=== PATIENT | female | born 1995 | race Caucasian/White ===

== ENCOUNTER 2016-09-10 18:18 | Emergency (ER) | payer OTHER ==
[~2016-09-10] VITALS: Ht 160 cm; Wt 61.2 kg
[~2016-09-10 18:18] MED LIST: ALEVE220 M2 PO; DIPHENHYDRAMINE25 M1 ORAL; IBUPROFEN600 MG ORAL; NORCO 5-325 TA1 EACH ORAL; PENICILLIN V P500 MG ORAL; PREDNISONE20 M1 PO
[2016-09-10 18:30] VITALS: BP 127/85
[2016-09-10] MEDS ORDERED: NKM (18:33)
[2016-09-10] MEDS ORDERED: BENADRYL25 MG ORAL (18:35)
[2016-09-10] MEDS ORDERED: KENALOG 0.5% CR15 GM TP (18:35)
[2016-09-10 18:45] VITALS: BP 127/85
--- NOTE | 2016-09-10 22:10 | Emergency Room Report ---
History of Present Illness General Chief Complaint: Skin Rash/Abscess Source: Patient Present Illness HPI The patient is a 21-year-old female presenting with a rash which she noticed 3 days prior after arriving home from [place]. Patient states that it is itchy and denies any pain. The patient has used hydrocortisone and Benadryl which has helped mildly. The patient denies any other symptoms including N, V, F, chills, MELTON, fatigue, cough, SOB Allergies: Coded Allergies: No Known Allergies (Unverified , 02/27/14) Patient History Past Medical History: see triage record Pertinent Family History: none Last Menstrual Period: 09/04/2016 Now: No : 0 Para: 0 Reviewed Nursing Documentation: PMH: Agreed, PSxH: Agreed Nursing Documentation-PMH Past Medical History: No Stated History Review of Systems All Other Systems: negative except mentioned in HPI Physical Exam Vital Signs Date Time Temp Pulse Resp B/P Pulse Ox O2 Delivery O2 Flow Rate FiO2 09/10/16 18:25 98.1 81 16 127/85 99 Room Air Sp02 EP Interpretation: reviewed, normal General Appearance: no apparent distress, alert, GCS 15, non-toxic Head: normocephalic, atraumatic Eyes: bilateral eye PERRL, bilateral eye normal inspection ENT: hearing grossly normal, normal pharynx, no angioedema, normal voice Respiratory: chest non-tender, lungs clear, normal breath sounds, speaking full sentences Musculoskeletal: back normal, gait/station normal, normal range of motion, non- tender Neurologic: alert, oriented x3, responsive, motor strength/tone normal, sensory intact, speech normal Psychiatric: judgement/insight normal, memory normal, mood/affect normal, no suicidal/homicidal ideation Skin: normal turgor, rash - There are circular erythematous lesions of the exposed areas of skin. Nontender. Appears in rows of 3. No burrows. No lesions between web spaces Lymphatic: no adenopathy Medical Decision Making PA Attestation Dr. Fair is my supervising physician. Patient management was discussed with my supervising physician Diagnostic Impression: Primary Impression: Insect bite ER Course The patient is a 21-year-old female presenting with a rash Ddx considered include but not limited to insect bite, contact dermatitis, eczema, cellulitis PE: Vitals WNL. NAD There are circular erythematous lesions of the exposed areas of skin. Nontender. Appears in rows of 3. No burrows. No lesions between web spaces The patient is discharged home with a prescription for triamcinolone and Benadryl. ER precautions are given and the patient will conduct a deep cleaning of clothing and bedroom. Last Vital Signs Date Time Temp Pulse Resp B/P Pulse Ox O2 Delivery O2 Flow Rate FiO2 09/10/16 18:45 98.1 79 16 127/85 99 Room Air Status: improved Disposition: HOME, SELF-CARE Condition: Improved Scripts Diphenhydramine Hcl* (BENADRYL*) 25 Mg Capsule 25 MG ORAL Q6H Y for Itching, #15 CAP Prov: KIRSTIN COON 09/10/16 Triamcinolone Acet (Triamcinolone Acetonide) 15 Gm Cream..g. 1 APPL TP TID, #15 GM Prov: KIRSTIN COON 09/10/16 Referrals: [employer] [facility],REFERRIN (PCP) Patient Instructions: Insect Bite Additional Instructions: I discussed my findings with the patient. All questions and concerns have been answered. Treatment and medication compliance have been addressed. I advised the patient that they need to follow up with PMD in 3-5 days. Return to ED if symptoms worsen, new symptoms arise, or if needed for any reason. Patient verbalized understanding of discharge instructions. KIRSTIN COON Sep 10, 2016 22:10
== END 2016-09-10 19:00 | disposition home or self-care (01) ==
LOC: EMR 18:51
DX: T14.8 Other injury of unspecified body region (principal); W57.XXXA Bitten or stung by nonvenomous insect and other nonvenomous arthropods, initial encounter; Y92.9 Unspecified place or not applicable; Y99.8 Other external cause status
CPT/HCPCS: 99284

== ENCOUNTER → 2017-02-19 | Emergency (ER) | payer MEDICAID, OTHER ==
[~2017-02-19] VITALS: Ht 160 cm; Wt 61.2 kg
[~2017-02-19] MED LIST changes: +BENADRYL25 MG ORAL; +CLOTRIMAZOLE15 GM TOPIC; +HYDROCORTISONE30 G2 TP; +KENALOG 0.5% CR15 GM TP; +NKM
[2017-02-19 15:15] VITALS: BP 114/70
--- NOTE | 2017-02-19 16:21 | Emergency Room Report ---
History of Present Illness General Chief Complaint: Skin Rash/Abscess Source: Patient Present Illness HPI 21-year-old female presents to the emergency department complaining of itchy rash with circular lesions to the bilateral posterior shoulders and upper back x2 days. Patient states that she noticed the rash after being in the sun all day. Patient states that the skin and not areas of production hardener color. Patient denies fevers, chills or swelling. Denies lesions/rashes elsewhere on the body. Denies new medications or body washes or creams. Denies swelling of the lips, tongue , throat or airway. Denies wheezing, or shortness of breath. Denies recent travel, recent illness or ill contacts. denies blisters, oral lesions, or sloughing of the skin. Denies CP, Palpitations, LOC, AMS, dizziness, Changes in Vision, Sensation, paresthesias, or a sudden severe headache. Allergies: Coded Allergies: No Known Allergies (Unverified , 02/27/14) Patient History Past Medical History: see triage record Past Surgical History: none Pertinent Family History: none Last Menstrual Period: 01/24/17 Now: No Immunizations: UTD Reviewed Nursing Documentation: PMH: Agreed, PSxH: Agreed Nursing Documentation-PMH Past Medical History: No Stated History Review of Systems All Other Systems: negative except mentioned in HPI Physical Exam Vital Signs Date Time Temp Pulse Resp B/P Pulse Ox O2 Delivery O2 Flow Rate FiO2 02/19/17 15:15 97.7 80 16 114/70 99 Room Air Sp02 EP Interpretation: reviewed, normal General Appearance: no apparent distress, alert, GCS 15, non-toxic Head: normocephalic, atraumatic Eyes: bilateral eye PERRL, bilateral eye normal inspection ENT: hearing grossly normal, no angioedema, normal voice, other - no swelling of the lips or tongue Neck: full range of motion Respiratory: lungs clear, normal breath sounds, no rhonchi, no wheezing, speaking full sentences Cardiovascular #1: regular rate, rhythm, no edema Musculoskeletal: back normal, gait/station normal, normal range of motion, non- tender Neurologic: alert, oriented x3, responsive, motor strength/tone normal, sensory intact, speech normal Psychiatric: judgement/insight normal, memory normal, mood/affect normal Skin: normal color, warm/dry, well hydrated, rash - erythematous rash to the upper back and bilateral post shoulders with excoriations noted, scant circular hypopigmented plaques noted as well. no crusting, no vessicles, no blisters. Medical Decision Making PA Attestation Dr. Naylor is my supervising Physician whom patient management has been discussed with. Diagnostic Impression: Primary Impression: Rash and other nonspecific skin eruption ER Course 21-year-old female presents to the emergency department complaining of itchy rash with circular lesions to the bilateral posterior shoulders and upper back x2 days. Patient states that she noticed the rash after being in the sun all day. Patient states that the skin and not areas of production hardener color. Patient denies fevers, chills or swelling. Denies lesions/rashes elsewhere on the body. Denies new medications or body washes or creams. Denies swelling of the lips, tongue , throat or airway. Denies wheezing, or shortness of breath. Denies recent travel, recent illness or ill contacts. denies blisters, oral lesions, or sloughing of the skin. Denies CP, Palpitations, LOC, AMS, dizziness, Changes in Vision, Sensation, paresthesias, or a sudden severe headache. Ddx considered but are not limited to cellulitis, scabies, shingles, varicella, dermatitis, urticaria, eczema, tinea Vital signs: are WNL, pt. is afebrile H&PE are most consistent with localized allergic skin reaction, circular hypopigmented lesions suspicious for tinea versicolor. not suspicious for secondary bacterial infection or anaphylaxis ORDERS: none required at this time, the diagnosis is clinical ED INTERVENTIONS: None required at this time. d/w pt. that she will be treated for both localized dermatitis, but also given medication for fungal infection, as hypopigmented plaques are suspicious for that. d/w pt. 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 Return to ED with worsening of symptoms/rash. DISCHARGE: At this time pt. is stable for d/c to home. Will provide printed patient care instructions, and any necessary prescriptions. Care plan and follow up instructions have been discussed with the patient prior to discharge. Last Vital Signs Date Time Temp Pulse Resp B/P Pulse Ox O2 Delivery O2 Flow Rate FiO2 02/19/17 15:15 97.7 80 16 114/70 99 Room Air Disposition: HOME, SELF-CARE Condition: Stable Scripts Diphenhydramine Hcl* (BENADRYL*) 25 Mg Capsule 25 MG ORAL Q6H Y for Itching, #20 CAP Prov: Marika Bean 02/19/17 Hydrocortisone (Hydrocortisone Cream 2.5%) Y Cream.appl 1 APPLIC TP BID, #28.3 GM Prov: Marika Bean 02/19/17 Clotrimazole* (LOTRIMIN*) 15 Gm Cream..g. 1 APPLIC TOPIC TWICE A DAY, #15 GM 1 Refill Prov: Marika Bean 02/19/17 Patient Instructions: Rash Additional Instructions: Take medications as directed. Follow up with a Primary Care Provider in 3-5 days, even if your symptoms have resolved. --Please review list of primary care clinics, if you do not already have a primary care provider Return sooner to ED if new symptoms occur, or current symptoms become worse. - Please note that this Emergency Department Report was dictated using [id number] loader and unloader technology software, occasionally this can lead to erroneous entry secondary to interpretation by the dictation equipment. Marika Bean Feb 19, 2017 16:21
== END | disposition home or self-care (01) ==
LOC: EMR 16:12
DX: R21 Rash and other nonspecific skin eruption (principal)
CPT/HCPCS: 99284

== ENCOUNTER 2020-05-20 16:35 | Emergency (ER) | payer MEDICAID, OTHER ==
[~2020-05-20] VITALS: Ht 160 cm; Wt 61.2 kg
[~2020-05-20 16:35] MED LIST changes: +CYCLOBENZAPRINE10 MG ORAL; +ONDANSETRON ODT4 MG BC
[2020-05-20] MEDS ORDERED: Dicyclomine HCl 10mg/5ml oral soln ORAL ONE (17:00)
--- NOTE | 2020-05-20 17:00 | NUR ---
ED Nurse Note: Pt walked in c/o low abd pain since yesterday. Denies n/v/d/fever. Respirations even and unlabored on room air. Vitals stable as documented. A+Ox4, speaking in complete sentences.
[2020-05-20 17:10] VITALS: BP 121/75
[2020-05-20 17:52] LABS: BASOPHILS % (AUTO) 0.6 % (0.0-2.0); EOSINOPHILS % (AUTO) 2.7 % (0.0-3.0); HEMATOCRIT 35.7 % (37.0-47.0); LYMPHOCYTES % (AUTO) 35.5 % (20.0-45.0); MEAN CORPUSCULAR VOLUME 92 FL (80-99); MONOCYTES % (AUTO) 5.7 % (1.0-10.0); NEUTROPHILS % (AUTO) 55.5 % (45.0-75.0); PLATELET COUNT 159 K/UL (150-450); RED BLOOD COUNT 3.89 M/UL (4.20-5.40); RED CELL DISTRIBUTION WIDTH 11.3 % (11.6-14.8); WHITE BLOOD COUNT 7.5 K/UL (4.8-10.8)
[2020-05-20 17:54] LABS: APPEARANCE,URINE SLIGHTLY CLOUDY; BILIRUBIN, URINE NEGATIVE (NEGATIVE); COLOR,URINE PALE YELLOW; GLUCOSE, URINE (UA) NEGATIVE (NEGATIVE); KETONES,URINE NEGATIVE (NEGATIVE); LEUKOCYTE ESTERASE ,URINE 2+ (NEGATIVE); NITRITE,URINE NEGATIVE (NEGATIVE); PH,URINE 8 (4.5-8.0); PROTEIN,URINE NEGATIVE (NEGATIVE); UROBILINOGEN,URINE NORMAL MG/DL (0.0-1.0)
[2020-05-20 18:04] LABS: ANION GAP 6 mmol/L (5-15); BLOOD UREA NITROGEN 8 mg/dL (7-18); CALCIUM 8.5 MG/DL (8.5-10.1); CARBON DIOXIDE 27 MMOL/L (21-32); CHLORIDE 105 MMOL/L (98-107); CREATININE 0.8 MG/DL (0.55-1.30); POTASSIUM 4.2 MMOL/L (3.5-5.1); SODIUM 138 MMOL/L (136-145)
[2020-05-20 18:09] LABS: ALANINE AMINOTRANSFERASE 18 U/L (12-78); ALBUMIN 3.6 G/DL (3.4-5.0); ALBUMIN/GLOBULIN RATIO 1.1 (1.0-2.7); ALKALINE PHOSPHATASE 34 U/L (46-116); ASPARTATE AMINO TRANSFERASE 17 U/L (15-37); BILIRUBIN,TOTAL 0.3 MG/DL (0.2-1.0)
--- NOTE | 2020-05-20 18:23 | Emergency Room Report ---
History of Present Illness General Chief Complaint: Abdominal Pain Source: Patient (John Barreto) Present Illness HPI 25-year-old female with history of gastritis currently taking Pepcid here complaining of diffuse abdominal cramping x2 days and lower abdominal pressure. Denies any urinary symptoms at this time. Reports feeling flatulent. Denies any constipation diarrhea. Denies any bloody stool. Denies nausea or vomiting. Denies fever and chills, cough or congestion. Denies recent travel or intake of any new food. Denies . Denies tobacco smoke, drug use, alcohol intake. 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 COVID-19 Screening: Negative COVID-19 COVID-19 Testing Source: 3 months ago (John Barreto) Patient History Past Medical History: see triage record Past Surgical History: none Pertinent Family History: none Now: No Immunizations: UTD Reviewed Nursing Documentation: PMH: Agreed; PSxH: Agreed (John Barreto) Nursing Documentation-PMH Past Medical History: No Stated History (John Barreto) Review of Systems All Other Systems: negative except mentioned in HPI (John Barreto) Physical Exam Vital Signs Date Time Temp Pulse Resp B/P (MAP) Pulse Ox O2 Delivery O2 Flow Rate FiO2 05/20/20 16:52 98.2 83 20 114/71 (85) 97 Room Air Sp02 EP Interpretation: reviewed, normal General Appearance: no apparent distress, alert, GCS 15, non-toxic Head: normocephalic, atraumatic Eyes: bilateral eye normal inspection, bilateral eye PERRL ENT: hearing grossly normal, normal pharynx, no angioedema, normal voice Neck: full range of motion, supple/symm/no masses Respiratory: chest non-tender, lungs clear, normal breath sounds, speaking full sentences Cardiovascular #1: regular rate, rhythm, no edema Cardiovascular #2: 2+ carotid (R), 2+ carotid (L), 2+ radial (R), 2+ radial ( L), 2+ dorsalis pedis (R), 2+ dorsalis pedis (L) Gastrointestinal: normal bowel sounds, non tender, soft, no mass, no organomegaly, no peritonitis, no bruit, non-distended, no guarding, no hernia, no pulsatile mass, no rebound Rectal: deferred Genitourinary: no CVA tenderness Musculoskeletal: back normal, normal range of motion, no calf tenderness, gait/station normal, non-tender Neurologic: alert, motor strength/tone normal, oriented x3, sensory intact, responsive, speech normal Psychiatric: judgement/insight normal, memory normal, mood/affect normal, no suicidal/homicidal ideation Skin: no rash Lymphatic: no adenopathy (John Barreto) Medical Decision Making PA Attestation All diagnoses and treatment plans were reviewed and discussed with my supervising physician Dr. Mccormick (John Barreto) Diagnostic Impression: Primary Impression: UTI (urinary tract infection) Additional Impressions: Abdominal pain Constipation Ovarian cyst ER Course 25-year-old female with history of gastritis currently taking Pepcid here complaining of diffuse abdominal cramping x2 days and lower abdominal pressure. Denies any urinary symptoms at this time. Reports feeling flatulent. Denies any constipation diarrhea. Denies any bloody stool. Denies nausea or vomiting. Denies fever and chills, cough or congestion. Denies recent travel or intake of any new food. Denies . Denies tobacco smoke, drug use, alcohol intake. Ddx considered but are not limited to: UTI, pyelonephritis, urinary incontinence, prolapsed bladder, gastritis, H. pylori, gastroenteritis Vital signs: are WNL, pt. is afebrile H&PE are most consistent with: Ddx considered but are not limited to: UTI, pyel onephritis, urinary incontinence, prolapsed bladder Vital signs: are WNL, pt. is afebrile H&PE are most consistent with: UTI, abdominal pain ORDERS: UA, urine cx, CBC, CMP, lipase, urine test, tox screen, KUB, dicyclomine, Macrobid, lactulose, enema CT abdomen pelvis with contrast/US ED INTERVENTIONS: Dicyclomine I signed out the patient to Dr. Mccormick at 8:15[facility] Grant) ER Course Assumed care of the patient from the previous provider at approximately 1999. Please refer to initial note for full history and physical exam. Briefly, 25-year-old female presenting for abdominal discomfort. Urinalysis shows moderate bacteria and white cells consistent with acute urinary tract infection. Patient will be treated with antibiotics. Labs otherwise within normal limits. KUB was concerning for possible sigmoid volvulus however CT did not show evidence of this. CT scan of the abdomen also concerning for fluid in the posterior cul-de-sac as well as possible cyst versus tubo-ovarian complex in the left adnexa. Ultrasound was ordered and results are pending. Preliminary interpretation is likely an ovarian cyst/dominant follicle. Patient has a new PMD and will be referred to her new [employer]. Will start on antibiotics and do a bowel cleanout for the constipation. She is otherwise well-appearing and her belly exam is benign. No evidence of pelvic inflammatory disease or systemic illness. Barring significant findings on ultrasound patient is stable for outpatient follow-up and will be discharged. Laboratory Tests Test 05/20/20 17:30 White Blood Count 7.5 K/UL (4.8-10.8) Red Blood Count 3.89 M/UL (4.20-5.40) L Hemoglobin 12.0 G/DL (12.0-16.0) Hematocrit 35.7 % (37.0-47.0) L Mean Corpuscular Volume 92 FL (80-99) Mean Corpuscular Hemoglobin 30.9 PG (27.0-31.0) Mean Corpuscular Hemoglobin Concent 33.6 G/DL (32.0-36.0) Red Cell Distribution Width 11.3 % (11.6-14.8) L Platelet Count 159 K/UL (150-450) Mean Platelet Volume 9.5 FL (6.5-10.1) Neutrophils (%) (Auto) 55.5 % (45.0-75.0) Lymphocytes (%) (Auto) 35.5 % (20.0-45.0) Monocytes (%) (Auto) 5.7 % (1.0-10.0) Eosinophils (%) (Auto) 2.7 % (0.0-3.0) Basophils (%) (Auto) 0.6 % (0.0-2.0) Urine Color Pale yellow Urine Appearance Slightly cloudy Urine pH 8 (4.5-8.0) Urine Specific [place] 1.015 (1.005-1.035) Urine Protein Negative (NEGATIVE) Urine Glucose (UA) Negative (NEGATIVE) Urine Ketones Negative (NEGATIVE) Urine Blood 3+ (NEGATIVE) H Urine Nitrite Negative (NEGATIVE) Urine Bilirubin Negative (NEGATIVE) Urine Urobilinogen Normal MG/DL (0.0-1.0) Urine Leukocyte Esterase 2+ (NEGATIVE) H Urine RBC 2-4 /HPF (0 - 2) H Urine WBC 10-15 /HPF (0 - 2) H Urine Squamous Epithelial Cells Many /LPF (NONE/OCC) H Urine Bacteria Moderate /HPF (NONE) H Urine HCG, Qualitative Negative (NEGATIVE) Sodium Level 138 MMOL/L (136-145) Potassium Level 4.2 MMOL/L (3.5-5.1) Chloride Level 105 MMOL/L (98-107) Carbon Dioxide Level 27 MMOL/L (21-32) Anion Gap 6 mmol/L (5-15) Blood Urea Nitrogen 8 mg/dL (7-18) Creatinine 0.8 MG/DL (0.55-1.30) Estimated Glomerular Filtration Rate > 60 mL/min (>60) Glucose Level 89 MG/DL (74-106) Calcium Level 8.5 MG/DL (8.5-10.1) Total Bilirubin 0.3 MG/DL (0.2-1.0) Aspartate Amino Transferase (AST) 17 U/L (15-37) Alanine Aminotransferase (ALT) 18 U/L (12-78) Alkaline Phosphatase 34 U/L (46-116) L Total Protein 6.9 G/DL (6.4-8.2) Albumin 3.6 G/DL (3.4-5.0) Globulin 3.3 g/dL Albumin/Globulin Ratio 1.1 (1.0-2.7) Lipase 110 U/L (73-393) Urine Opiates Screen Negative (NEGATIVE) Urine Barbiturates Screen Negative (NEGATIVE) Phencyclidine (PCP) Screen Negative (NEGATIVE) Urine Amphetamines Screen Negative (NEGATIVE) Urine Benzodiazepines Screen Negative (NEGATIVE) Urine Cocaine Screen Negative (NEGATIVE) Urine Marijuana (THC) Screen Negative (NEGATIVE) (Kody Mccormick MD) Other X-Ray Diagnostic Results Other X-Ray Diagnostic Results : X-Ray ordered: KUB # of Views/Limited Vs Complete: 1 View Indication: Pain EP Interpretation: Yes PA Xray: Interpretation reviewed, by supervising MD, and agrees with findings. Interpretation: nonspecific bowel gas Impression: No acute disease Electronically Signed by: John Rubio PA-C (John Barreto) CT/MRI/US Diagnostic Results CT/MRI/US Diagnostic Results : Imaging Test Ordered: CT abd pelvis with contrast Impression COMPARISON: Abdominal x-rayof earlier the same day. FINDINGS: Lung bases:Unremarkable. No mass. No consolidation. ABDOMEN: Liver:Unremarkable. No mass. Gallbladder and bile ducts:Unremarkable. No calcified stones. No ductal dilation. Pancreas:Unremarkable. No mass. No ductal dilation. Spleen:Unremarkable. No splenomegaly. Adrenals:Unremarkable. No mass. Kidneys and ureters:Unremarkable. No solid mass. No hydronephrosis. Stomach and bowel: There is soft tissue stranding in the right lower quadrant abdomen along the cecumof uncertain etiology. Similar more subtle soft tissue stranding is present along the left paracolic gutter near the junction between the descending colon and proximal sigmoid colon. The sigmoid colon is gas filled but shows no abnormal wall thickening and no evidence of volvulus. No obstruction. PELVIS: Appendix: The appendix appears normal. Bladder:Unremarkable. No mass. Reproductive: Left adnexal 3.8 cmcystic structure is present. ABDOMEN and PELVIS: Intraperitoneal space: There is intermediate densityfluid or soft tissue in the posterior cul-de-sac. No free air. Bones/joints:No acute fracture. No dislocation. Soft tissues:Unremarkable. Vasculature:Unremarkable. No abdominal aortic aneurysm. Lymph nodes:Unremarkable. No enlarged lymph nodes. IMPRESSION: 1. No evidence of sigmoid volvulus. 2. Intermediate densityfluid or soft tissue in the posterior cul-de-sac in the setting of inflammatory soft tissue stranding in the bilateral adnexa and paracolic gutters are findings suspicious for possible pelvic inflammatorydisease. In this context, cystic structure measuring 3.8 cmin the left adnexa could represent a dominant ovarian cyst versus a tubo-ovarian complex. Correlate clinicallyand consider pelvic ultrasound if clinicallyappropriate. 3. Otherwise no acute findings in the abdomen or pelvis on contrast enhanced CT (John Barreto) CT/MRI/US Diagnostic Results : Impression IMPRESSION: 1. No evidence of sigmoid volvulus. 2. Intermediate density fluid or soft tissue in the posterior cul-de-sac in the setting of inflammatory soft tissue stranding in the bilateral adnexa and paracolic gutters are findings suspicious for possible pelvic inflammatory disease. In this context, cystic structure measuring 3.8 cm in the left adnexa could represent a dominant ovarian cyst versus a tubo- ovarian complex. Correlate clinically and consider pelvic ultrasound if clinically appropriate. 3. Otherwise no acute findings in the abdomen or pelvis on contrast enhanced CT Dictated By: Ronnie Marques M.D. Electronically Signed By:Ronnie Marques M.D. Signed Date/Time05/20/201999 CC: John Barreto IMPRESSION: Probable hemorrhagic left ovarian cyst and to structures in the left adnexa favored to represent collapsed small bowel loops in the left adnexal pelvic free fluid. Recommend clinical correlation and follow-up to help exclude the mimic of a fallopian tube mass. Dictated By: Ronnie Marques M.D. Electronically Signed By:Ronnie Marques M.D. Signed Date/Time05/20/20 230 CC: John Barreto (Kody Mccormick MD) Last Vital Signs Date Time Temp Pulse Resp B/P (MAP) Pulse Ox O2 Delivery O2 Flow Rate FiO2 05/20/20 17:10 79 20 Room Air 05/20/20 17:10 98.0 121/75 98 (John Barreto) Disposition: HOME, SELF-CARE Condition: Stable Scripts Na Phos,M-B/Na Phos,Di-Ba (ENEMA) 133 Ml Enema 133 ML RC DAILY, #10 EA Prov: John Barreto 05/20/20 Lactulose (LACTULOSE*) 20 Gm/30 Ml Solution 15 ML ORAL TID, #240 ML 0 Refills Prov: John Barreto 05/20/20 Dicyclomine Hcl* (DICYCLOMINE HCL*) 10 Mg Capsule 10 MG ORAL TID, #10 CAP Prov: John Barreto 05/20/20 Nitrofurantoin Monohyd/M-Cryst* (MACROBID 100 MG*) 100 Mg Capsule 100 MG ORAL EVERY 12 HOURS for 7 Days, #14 CAP Prov: John Barreto 05/20/20 Referrals: [facility]ERR[facility] (PCP) Patient Instructions: Abdominal Pain, Adult, Urinary Tract Infection, Ntgl-to-Ohst Additional Instructions: Advised patient to follow primary doctor for H. pylori testing and further evaluation, also avoid eating spicy acidic food, if worsening symptoms return to the emergency room. John Barreto May 20, 2020 18:23 Kody Mccormick MD May 20, 2020 22:22
[2020-05-20] MEDS ORDERED: NITROFURANTOIN100 M2 ORAL (18:24)
[2020-05-20] MEDS ORDERED: DICYCLOMINE HCL10 MG ORAL (18:24)
--- NOTE | 2020-05-20 18:52 | Diagnostic Imaging Report ---
EXAM: XR Abdomen, 2 Views CLINICAL HISTORY: PAIN TECHNIQUE: Frontal view of the abdomen/pelvis with upright view of the abdomen. COMPARISON: No relevant prior studies available. FINDINGS: Intraperitoneal space: No free air. Gastrointestinal tract: Dilated, gas-filled C-shaped loop of bowel in the left midabdomen is present. Bones/joints: Unremarkable. IMPRESSION: Dilated, gas-filled C-shaped loop of bowel in the left midabdomen is present. Cannot exclude early sigmoid volvulus. Recommend correlation with abdomen and pelvis CT with IV contrast. <MYCVCSECTION> Communications: 05/20/20 18:57 Verify Receipt Verified receipt with BEAN Guerrero- given to Dr. Mccormick on 05/20 18:56 (-08:00)
[2020-05-20] MEDS ORDERED: Omnipaque-300 100ml vial INJ PRN (19:00)
--- NOTE | 2020-05-20 19:10 | NUR ---
HAND-OFF: Report given to KASSI Pimentel. Pt in stable condition; plan of care endorsed.
--- NOTE | 2020-05-20 19:10 | NUR ---
ED Nurse Note: pT RESTING IN BED, VSS NO SS OF DISTRESS NOTED. WILL CONTINUE TO MONITOR
[2020-05-20 19:20] VITALS: BP 119/71
--- NOTE | 2020-05-20 20:00 | Diagnostic Imaging Report ---
EXAM: CT Abdomen and Pelvis With Intravenous Contrast CLINICAL HISTORY: PAIN TECHNIQUE: Axial computed tomography images of the abdomen and pelvis with intravenous contrast. CTDI is 4.5 mGy and DLP is 217.4 mGy-cm. One or more of the following dose reduction techniques were used: automated exposure control, adjustment of the mA and/or kV according to patient size, use of iterative reconstruction technique. COMPARISON: Abdominal x-ray of earlier the same day. FINDINGS: Lung bases: Unremarkable. No mass. No consolidation. ABDOMEN: Liver: Unremarkable. No mass. Gallbladder and bile ducts: Unremarkable. No calcified stones. No ductal dilation. Pancreas: Unremarkable. No mass. No ductal dilation. Spleen: Unremarkable. No splenomegaly. Adrenals: Unremarkable. No mass. Kidneys and ureters: Unremarkable. No solid mass. No hydronephrosis. Stomach and bowel: There is soft tissue stranding in the right lower quadrant abdomen along the cecum of uncertain etiology. Similar more subtle soft tissue stranding is present along the left paracolic gutter near the junction between the descending colon and proximal sigmoid colon. The sigmoid colon is gas filled but shows no abnormal wall thickening and no evidence of volvulus. No obstruction. PELVIS: Appendix: The appendix appears normal. Bladder: Unremarkable. No mass. Reproductive: Left adnexal 3.8 cm cystic structure is present. ABDOMEN and PELVIS: Intraperitoneal space: There is intermediate density fluid or soft tissue in the posterior cul-de-sac. No free air. Bones/joints: No acute fracture. No dislocation. Soft tissues: Unremarkable. Vasculature: Unremarkable. No abdominal aortic aneurysm. Lymph nodes: Unremarkable. No enlarged lymph nodes. IMPRESSION: 1. No evidence of sigmoid volvulus. 2. Intermediate density fluid or soft tissue in the posterior cul-de-sac in the setting of inflammatory soft tissue stranding in the bilateral adnexa and paracolic gutters are findings suspicious for possible pelvic inflammatory disease. In this context, cystic structure measuring 3.8 cm in the left adnexa could represent a dominant ovarian cyst versus a tubo- ovarian complex. Correlate clinically and consider pelvic ultrasound if clinically appropriate. 3. Otherwise no acute findings in the abdomen or pelvis on contrast enhanced CT
[2020-05-20] MEDS ORDERED: LACTULOSE20 GM/301 ORAL (20:14)
[2020-05-20] MEDS ORDERED: ENEMA133 M1 RC (20:14)
--- NOTE | 2020-05-20 20:45 | NUR ---
ED Nurse Note: US AT BEDSIDE
[2020-05-20 21:25] VITALS: BP 121/73
--- NOTE | 2020-05-20 23:06 | Diagnostic Imaging Report ---
EXAM: US Pelvis Transabdominal, Complete CLINICAL HISTORY: MASS TECHNIQUE: Real-time complete transabdominal pelvic ultrasound with image documentation. COMPARISON: No relevant prior studies available. FINDINGS: Uterus/cervix: Uterus measures 7.3 x 4.7 x 2.9 cm. Endometrial stripe measures 6 mm. No myometrial mass. Right ovary: Right ovary measures 2.6 x 2.2 x 2.4 cm. Right ovary demonstrates normal blood flow. Left ovary: Left ovary measures 4.8 x 2.6 x 3.3 cm and contains a cyst with low-level internal echoes that measures 3.1 cm. Normal blood flow. Free fluid: There is pelvic free fluid. In the posterior cul-de-sac sac tubular structures are identified adjacent to the left ovary that could represent collapsed small bowel loops. Bladder: Unremarkable as visualized. Wall is normal thickness for degree of distention. IMPRESSION: Probable hemorrhagic left ovarian cyst and to structures in the left adnexa favored to represent collapsed small bowel loops in the left adnexal pelvic free fluid. Recommend clinical correlation and follow-up to help exclude the mimic of a fallopian tube mass.
[2020-05-20 23:18] VITALS: BP 125/76
--- NOTE | 2020-05-20 23:18 | NUR ---
ER DISCHARGE NOTE: Patient is cleared to be discharged HOME per ERMD, pt is aox4, 99% on room air, with stable vital signs. pt was given dc and prescription instructions, pt was able to verbalize understanding, pt id band and iv site removed without complications. pt is able to ambulate with steady gait. pt took all belongings.
== END 2020-05-20 23:18 | disposition home or self-care (01) ==
LOC: EMR 17:23
DX: N39.0 Urinary tract infection, site not specified (principal); R10.30 Lower abdominal pain, unspecified; K59.00 Constipation, unspecified; N83.202 Unspecified ovarian cyst, left side
CPT/HCPCS: 36415; 74018; 74177; 76830; 76856; 80053; 80307; 81003; 81025; 83690; 85025; 87086; Q9965; Z7502; 99284